=== PATIENT | female | born 1975 | race Two or more races ===

== ENCOUNTER 2024-12-29 22:20 | Emergency (ER) | payer MEDICAID, SELFPAY ==
[2024-12-29 22:53] VITALS: BP 163/91; PULSE 96; RESP 20; TEMP 37.1; O2SAT 96
--- NOTE | 2024-12-29 22:55 | PD.EDRME ---
Rapid Medical Screening Exam E Arrival date/time: 12/29/24 22:20 Chief Complaint: Abdominal Pain Vital signs: Vital Signs Temperature 98.8 F 12/29/24 22:53 Pulse Rate 96 12/29/24 22:53 Respiratory Rate 20 12/29/24 22:53 Blood Pressure 163/91 H 12/29/24 22:53 Pulse Oximetry (%) 96 12/29/24 22:53 Oxygen Delivery Method Room Air 12/29/24 22:53 RME Narrative: Generalized lower abdominal pain x 10 days. PCP prescribed Bactrim for an infection, no testing done in clinic. Patient has taken 4 days of antibiotic.
[2024-12-29] MEDS: ONDANSETRON ODT 4 MG TABRAP PO (23:09)
[2024-12-29 23:15] LABS: Collection Type, Urine Clean Catch; WBC,Urine 0 /hpf (0-5)
[2024-12-29 23:18] LABS: Basophils % (Auto) 0 % (0-2.5); Eosinophils # (Auto) 0.1 Thou/mm3 (0.0-0.5); Eosinophils % (Auto) 1 % (0-10); Hemoglobin 13.2 g/dL (12.0-16.0); Immature Granulocytes % (Auto) 0 % (0-0); Immature Granulocytes Auto 0.02 Thou/mm3 (0.00-0.00); Lymphocytes # (Auto) 2.6 Thou/mm3 (1.0-4.8); Lymphocytes % (Auto) 25 % (10-50); Mean Corpuscular HGB Conc 35.7 g/dl (31.0-37.0); Mean Corpuscular Hemoglobin 31.7 pg (25.0-35.0); Mean Corpuscular Volume 89 fL (80-100); Monocytes # (Auto) 0.8 Thou/mm3 (0.0-0.8); Monocytes % (Auto) 7 % (0-12); Neutrophils % (Auto) 66 % (37-80); Nucleated Red Blood Cell % 0 /100 WBC (0); Platelet Count 289 Thou/mm3 (140-440); RDW Standard Deviation 41.1 fL (36.4-46.3); Red Blood Count 4.17 Miln/mm3 (4.00-5.20); White Blood Count 10.6 Thou/mm3 (3.6-11.0)
[2024-12-29 23:29] LABS: Bacteria,Urine Rare; Bilirubin,Urine Negative (Negative); Blood,Urine Trace (Negative); Clarity,Urine Clear (Clear/Hazy); Color,Urine Colorless (Lt Yel-Yel); Glucose, Urine Negative (Negative); Ketones,Urine Negative (Negative); Leukocyte Esterase,Urine Negative (Negative); Nitrite,Urine Negative (Negative); PH,Urine 7.5 (5.0-7.0); Protein,Urine Negative (Neg - Trace); RBC,Urine 1 /hpf (0-3); Specific Gravity,Urine 1.012 (1.001-1.035); Squamous Epithelial Cell,Urine 5 /hpf (0-5); Urobilinogen,Urine Negative mg/dL (0.0-1.0)
[2024-12-29 23:31] LABS: HCG Qualitative,Urine Negative
--- NOTE | 2024-12-29 23:32 | XR_ITS ---
Examination: CT abdomen with intravenous contrast CT pelvis with intravenous contrast 2-D coronal reconstructions 2-D sagittal reconstructions Date and time of exam:December 30, 2024 0059 hours INDICATIONS: Lower abdominal pain with nausea beginning 10 days ago. CTDI: vol (mGy) 8.22 DLP: (mGycm) 115 Technique: Multiple axial sections of the abdomen and pelvis have been obtained. 64 slice high-resolution scanner used. 3 mm axial sections have been obtained, post intravenous injection 60 cc [id number] 2-D sagittal, coronal reconstructions obtained. Low dose protocols were performed. One or more of the following dose reduction techniques were used; automated exposure control, adjustment of the mA and/or KV according to patient size, use of iterative reconstruction technique. Findings: Fatty infiltration throughout the liver No focal liver lesions Cholelithiasis No extra hepatic biliary tract dilatation No renal or ureteral calculi, no hydronephrosis Aorta normal size No bowel obstruction Acute sigmoid diverticulitis, no pelvic abscess Urinary bladder intact IMPRESSION: Acute sigmoid diverticulitis, no pelvic abscess
[2024-12-29 23:35] LABS: Alanine Aminotransferase 18 U/L (10-49); Albumin, Serum 4.4 gm/dL (3.5-5.0); Albumin/Globulin Ratio 1.6 (1.2-2.2); Alkaline Phosphatase 75 U/L (46-116); Anion Gap 8 (7-16); Aspartate Amino Transferase 17 U/L (0-34); BUN/Creatinine Ratio 24 Ratio (12-20); Bilirubin,Total 0.4 mg/dL (0.3-1.2); Blood Urea Nitrogen 19 mg/dL (9-23); Calcium 9.2 mg/dL (8.3-10.6); Calcium (Corrected) 9.2 mg/dL (8.5-10.1); Carbon Dioxide 28.2 mMol/L (20.0-31.0); Chloride 105 mMol/L (98-107); Creatinine (Component) 0.8 mg/dL (0.6-1.3); Globulin 2.8 gm/dL (2.3-3.5); Glucose 111 mg/dL (74-106); Lipase 48 U/L (12-53); Osmolality,Calculated 284 (275-295); Potassium 3.8 mMol/L (3.4-5.1); Sodium 141 mMol/L (136-145); Total Protein 7.2 gm/dL (5.7-8.2); eGFR > 60 See Note
[2024-12-30] MEDS: MORPHINE SULF INJ 10 MG/ML VIAL 4 MG IVP (01:29)
--- NOTE | 2024-12-30 02:36 | PRELIM_ITS ---
CT scan of the abdomen and pelvis with intravenous contrast (axial sections with sagittal and coronal reformats) December 30, 2024 0059 hours Clinical History: Lower abdomen pain x10d No prior study is available for comparison. Findings: The lung bases are clear. There is mild heterogeneous attenuation of the liver, likely secondary to fatty infiltration. Multiple calculi are noted within the gallbladder, without evidence of gallbladder wall thickening or pericholecystic fluid. There is a subcentimeter hypodense lesion in the upper pole of left kidney, too small to characterize. The pancreas, spleen, right kidney and adrenals are unremarkable. There are multiple colonic diverticula with diffuse thickening of the sigmoid colon and surrounding fat stranding. There is no free air or abscess. Trace free fluid is seen in the pelvis. No evidence of bowel dilatation. There are non- specific fluid filled small bowel loops in the abdomen. Moderate amount of fecal material is present in the colon. The appendix is within normal limits. The urinary bladder is unremarkable. There is a 2.1 x 1.8 cm left ovarian cyst/ involuting follicle. There are nonspecific small mesenteric and retroperitoneal lymph nodes. Mild degenerative changes are identified in the spine. Impression: Acute sigmoid diverticulitis. No obvious collection or free air. Cholelithiasis. Other findings as described above. Report Electronically Signed By: Ned Abernathy 12/30/2024 2:36:04 AM [EST]
--- NOTE | 2024-12-30 02:51 | EDNOTE_ITS ---
ED Abdominal Pain RME/HPI General Chief Complaint: Abdominal Pain Stated complaint: LOWER ABD PAIN Time seen by provider: 12/30/24 02:49 Arrival date/time: 12/29/24 22:20 Source: patient, RN notes reviewed and old records reviewed Mode of arrival: ambulatory Limitations: no limitations RME / HPI RME / HPI narrative: 49yof presents to ED for 10 day history of generalized lower abdominal pain. PCP prescribed bactrim for an infection, no testing done in clinic. Patient has taken 4 days of antibiotic without sx improvement. No fever, vomiting, diarrhea or urinary symptoms reported. Patient c/o mild nausea. Related Data Home Medications ?Medication ?Instructions ?Recorded ?Confirmed Vitamin * 1 tab PO QDAY #0 tabs Previous Rx's ?Medication ?Instructions ?Recorded Hydrocodone/Acetaminophen (VICODIN 1 tab PO Q6HR PRN A BDOMINAL PAIN 07/01/14 5/300) #10 tabs ferrous sulfate 325 mg (65 mg 325 mg PO BIDWM PRN BID #60 tabs 07/01/14 iron) tablet (Feosol) ibuprofen 800 mg tablet 800 mg PO Q8HR PRN PAIN #28 tabs 07/01/14 amoxicillin 875 mg-potassium 1 tab PO BID 7 days #14 t abs 12/30/24 clavulanate 125 mg tablet dicyclomine 20 mg tablet 20 mg PO Q6HR PRN abdominal pain 12/30/24 #30 tabs ibuprofen 600 mg tablet 600 mg PO Q6H PRN pain #30 t abs 12/30/24 Allergies Allergy/AdvReac Type Severity Reaction Status Date / Time No Known Allergies Allergy Verified 12/29/24 22:21 Review of Systems Review of Systems Systems Reviewed: All systems reviewed, normal except as documented Constitutional Constitutional: Denies body ache(s) and Denies fever(s) Gastrointestinal Gastrointestinal: Reports abdominal pain, Denies hematochezia, Denies loose stools, Reports nausea and Denies vomiting Genitourinary Genitourinary: Denies dysuria and Denies flank pain Past Medical History Past Medical History ENDOCRINE: Positive Hypothyroidism Surgical History OTHER SURGICAL HX: salpingectomy from ectopic Social History SMOKING STATUS: Never smoker SUBSTANCE USE: does not use ALCOHOL: Never ED Exam General Limitations: Present no limitations General appearance: Present alert and in no apparent distress Head Head exam: Present atraumatic and normocephalic Eye Eye exam: Present normal appearance, PERRL and EOMI ENT ENT exam: Present normal exam and mucous membranes moist Neck Neck exam: Present normal inspection and full ROM Chest Chest inspection: Present normal inspection and symmetric chest wall rise Respiratory Respiratory exam: Present normal lung sounds bilaterally; Absent respiratory distress Cardiovascular Cardiovascular exam: Present regular rate and normal rhythm Abdominal Exam Abdominal exam: Present soft and tenderness (LLQ tenderness); Absent distention, guarding or rebound Extremities Exam Extremities exam: Present normal inspection and full ROM Neurological Exam Neurological exam: Present alert and oriented X3 Psychiatric Psychiatric exam: Present normal affect and normal mood Skin Skin exam: Present warm, dry and intact Course Quality Measures none Orders Category Date Time Status CT Screening NOW Care 12/29/24 23:32 Completed IV [Insert IV] NOW Care 12/30/24 00:[address] abdomen pelvis w con Stat Exams 12/29/24 23:32 Completed CBC Stat Lab 12/29/24 23:02 Completed CMP [Comprehensive Metabolic Panel] Stat Lab 12/29/24 23:02 Completed HCG Qualitative,Urine Stat Lab 12/29/24 23:01 Completed Lipase Stat Lab 12/29/24 23:02 Completed UA [Urinalysis] Stat Lab 12/29/24 23:01 Completed Morphine Inj Med 12/30/24 01:14 Discontinued 4 mg IVP X1 ONE Ondansetron Odt [Zofran Odt] Med 12/29/24 22:56 Discontinued 4 mg PO X1 ONE Vital Signs Vital signs: Vital Signs Temperature 98.8 F 12/29/24 22:53 Pulse Rate 96 12/29/24 22:53 Respiratory Rate 20 12/29/24 22:53 Blood Pressure 163/91 H 12/29/24 22:53 Pulse Oximetry (%) 96 12/29/24 22:53 Oxygen Delivery Method Room Air 12/29/24 22:53 Abdominal Pain MDM MDM Narrative MDM Narrative:: 49yof presents to ED for 10 day history of generalized lower abdominal pain. PCP prescribed bactrim for an infection, no testing done in clinic. Patient has taken 4 days of antibiotic without sx improvement. No fever, vomiting, diarrhea or urinary symptoms reported. Patient c/o mild nausea. Will treat for diverticultitis. Patient is non-toxic appearing, afebrile, vitals are stable. Good candidate for outpatient mgmt. Encouraged adequate fluids, symptomatic treatment prn. Stable for dc, RTED precautions given. Patient data External records reviewed:: [facility] previous records (12/03/17 ED visit for L&D) Clinical information provided by:: patient and family (daughter) Social determinants that could affect healthcare access:: none Patient has the following chronic illnesses:: hypothyroid How is presenting disease/condition affected by chronic disease/condition?: uneffected by Evaluation data The following diagnostics were reviewed and interpreted by me:: lab results and radiology exam(s) Lab and/or radiology exams considered but not ordered:: none Interpretation Summary: No leukocytosis UA negative CT abd/pelvis: Impression: Acute sigmoid diverticulitis. No obvious collection or free air. Cholelithiasis. Other findings as described above. Report Electronically Signed By: Ned Abernathy 12/30/2024 2:36:04 AM [EST] Medications / Prescriptions Medications or Prescriptions considered but not ordered:: none Medication administrations:: Medication Administration History Discontinued Medications Morphine Sulfate (Morphine Sulf Inj 10 Mg/Ml Vial) 4 mg IVP X1 ONE Stop: 12/30/24 01:15 Last Admin: 12/30/24 01:29 Dose: 4 mg Documented By: LOCO Ondansetron HCl (Ondansetron Odt 4 Mg Tabrap) 4 mg PO X1 ONE; Protocol Stop: 12/29/24 22:57 Last Admin: 12/29/24 23:09 Dose: 4 mg Documented By: EE above medications administered in ED Consultations Consultation(s) initiated? (list below): No Diagnosis Differential diagnosis abdominal pain: abdominal pain, acute appendicitis, calculus of kidney, constipation, diverticulitis, gastroenteritis and small bowel obstruction Most likely diagnosis given after review of the tests above:: divertiiculitis Admission Indicated Admission indicated?: not indicated Admission Request Was there a request for admission?: No Disposition Plan Disposition Plan: Discharge Discharge Attestation Discharge Attestation: The patient and all family members were given an opportunity to ask questions and understood the discharge instructions. Discharge instructions specifically effects, indications for sooner follow up or return to the emergency department, and the expected course of current diagnosis. Patient condition: Stable Discharge Plan Plan Patient Disposition: HOME (Self Care) Patient condition on transfer: Stable Prescriptions/Referrals Prescriptions/Med Rec: New amoxicillin-pot clavulanate 875-125 mg tablet 1 tab PO BID 7 Days Qty: 14 0RF ibuprofen 600 mg tablet 600 mg PO Q6H PRN (Reason: pain) Qty: 30 0RF dicyclomine 20 mg tablet 20 mg PO Q6HR PRN (Reason: abdominal pain) Qty: 30 0RF No Action Vitamin * 1 EACH tablet 1 tab PO QDAY Qty: 0 ibuprofen 800 MG tablet 800 mg PO Q8HR PRN (Reason: PAIN) Qty: 28 0RF ferrous sulfate [Feosol] 1 TAB tablet 325 mg PO BIDWM PRN (Reason: BID) Qty: 60 0RF Hydrocodone/Acetaminophen (VICODIN 5/300) 1 EACH tablet 1 tab PO Q6HR PRN (Reason: ABDOMINAL PAIN) Qty: 10 0RF Referrals: Geri Dorsey PA-C [Primary Care Provider] - In 1 week Problem List Clinical Impression: Diverticulitis Patient/Caregiver Discharge Instructions Education Materials: ED Diverticulitis Print Language: Turkmen Stand Alone Forms: Kait Award Info., Patient Portal Info Letter PA/[employer] Supervising Physician PA/[employer] Supervising Physician: Jose
[2024-12-30 02:58] VITALS: RESP 16
== END 2024-12-30 02:59 | disposition home or self-care (01) ==
PROVIDERS: Physician Assistant; Emergency Provider Emergency Medicine; PCP Physician Assistant Medical
DX: K57.32 Diverticulitis of large intestine without perforation or abscess without bleeding (principal)
CPT/HCPCS: 36415; 74177; 80053; 81001; 81025; 83690; 85025; 96374; 99285; A4649; J2270; Q0162; Q9967